=== PATIENT | female | born 1970 | race Caucasian/White ===

== ENCOUNTER 2021-06-21 16:14 | Emergency (ER) | payer OTHER ==
[~2021-06-21] VITALS: Ht 167.6 cm; Wt 141.5 kg
[2021-06-21 16:44] LABS: HEMOGLOBIN 12.9 gm/dl (12.3-15.3); RED BLOOD COUNT 4.72 M/UL (4.00-5.10); WHITE BLOOD COUNT 5.1 K/UL (4.5-11.0)
[2021-06-21 17:04] LABS: BUN/CREATININE RATIO 18 (0-10)
== END 2021-06-21 18:55 | disposition home or self-care (01) ==
LOC: ER1 16:14
PROVIDERS: Physician Assistant
DX: Z23 Encounter for immunization (principal); U07.1 COVID-19; E11.9 Type 2 diabetes mellitus without complications; I10 Essential (primary) hypertension; Z90.49 Acquired absence of other specified parts of digestive tract; Z90.710 Acquired absence of both cervix and uterus
CPT/HCPCS: 71045; 80053; 85025; 99285; M0243